=== PATIENT | female | born 1935 | race Caucasian/White ===

== ENCOUNTER 2019-06-02 12:22 | Emergency (ER) | payer MEDICARE ==
[2019-06-02] MEDS ORDERED: ACETAMINOPHEN EXTRA STRENGTH 500 MG TABLET ONE (13:14)
[2019-06-02] MEDS ORDERED: LIDOCAINE 1%-EPI 1:100,000 20 ML VIAL IJ ONE (13:14)
[2019-06-02] MEDS ORDERED: TETANUS/DIPHTHERIA TOXOID [ADULT] 0.5 ML VIAL IM ONE (13:15)
== END 2019-06-02 16:16 | disposition home or self-care (01) ==
LOC: EDH 12:22
DX: S01.511A Laceration without foreign body of lip, initial encounter (principal); S63.501A Unspecified sprain of right wrist, initial encounter; S80.212A Abrasion, left knee, initial encounter; Y92.89 Other specified places as the place of occurrence of the external cause; E03.9 Hypothyroidism, unspecified; W01.0XXA Fall on same level from slipping, tripping and stumbling without subsequent striking against object, initial encounter; Y93.89 Activity, other specified; Y99.8 Other external cause status
CPT/HCPCS: 40650; 70450; 70486; 73110; 90471; 90714; 99285; J3490

== ENCOUNTER 2019-06-07 08:57 | Emergency (ER) | payer MEDICARE | END 2019-06-07 09:38 | disposition home or self-care (01) | LOC: EDH 08:57 | DX: Z48.02 Encounter for removal of sutures (principal); E03.9 Hypothyroidism, unspecified | CPT/HCPCS: 99281 ==